=== PATIENT | female | born 1995 | race Caucasian/White ===

== ENCOUNTER → 2019-05-17 00:42 | Observation (INO) ==
[2019-05-16 22:13] LABS: Bilirubin,Urine Negative (Negative); Blood,Urine Negative (Negative); Clarity,Urine Clear (Clear); Color,Urine Yellow (Yellow); Glucose,Urine (UA) Normal (Normal); Ketones,Urine Negative (Negative); Leukocyte Esterase,Urine Negative (Negative); Nitrite,Urine Negative (Negative); PH,Urine 6.5 pH Units (5.0-8.0); Protein,Urine Negative (Neg-Trace); Urobilinogen,Urine Normal (Normal)
[2019-05-16 22:19] LABS: Amphetamine Screen,Urine Negative ng/mL (Cutoff=1000); Barbiturate Screen,Urine Negative ng/mL (Cutoff=200); Benzodiazepines Screen,Urine Negative ng/mL (Cutoff=200); Cannabinoid Screen,Urine Negative ng/mL (Cutoff = 50); Cocaine Screen,Urine Negative ng/mL (Cutoff= 300); Opiate Screen,Urine Negative ng/mL (Cutoff=300); Phencyclidine Screen,Urine Negative ng/mL (Cutoff=25)
[~2019-05-17 00:42] MED LIST: Acetaminophen 325 MG TABLET PO ONE
== END | disposition home or self-care (01) ==
LOC: 1NENULAB
PROVIDERS: ADMIT Registered Nurse; ATTEND Registered Nurse

== ENCOUNTER 2019-07-09 05:00 | Inpatient (IN) ==
[2019-07-09] MEDS ORDERED: Metoclopramide 10 MG/2 ML VIAL IVP PRN (05:22)
[2019-07-09] MEDS ORDERED: Naloxone 0.4 MG/ML INJ IVP PRN (05:22)
[2019-07-09] MEDS ORDERED: Lidocaine 1% 20 ML MDV INFILT PRN (05:22)
[2019-07-09] MEDS ORDERED: Famotidine 20 MG/2 ML VIAL IVP PRN (05:22)
[2019-07-09] MEDS ORDERED: Penicillin G Potassium 5,000,000 UNIT in 0.9 % Sodium Chloride Mini Bag 100 ML IVPB ONE (05:27)
[2019-07-09] MEDS ORDERED: miSOPROStoL 25 MCG TABLET PO ONE (06:00)
[2019-07-09] MEDS: Ringers Solution, Lactated 1,000 ML IVC SCH ×3 (06:08→22:40)
[2019-07-09 06:16] LABS: Basophils # 0.1 K/mcL (0.0-0.2); Basophils % 0.6 %; Eosinophils # 0.1 K/mcL (0.0-0.6); Eosinophils % 1.7 %; Hematocrit 34.6 % (35.3-44.9); Hemoglobin 11.4 g/dL (11.5-15.4); Immature Granulocytes % 0.2 % (0-4); Lymphocytes # 2.4 K/mcL (0.6-4.6); Lymphocytes % 29.5 %; Mean Corpuscular HGB Conc 32.9 g/dL (31.6-35.5); Mean Corpuscular Hemoglobin 29.4 pg (28.0-33.3); Mean Corpuscular Volume 89.2 fL (83.0-100.0); Mean Platelet Volume 9.8 fL (9.4-12.4); Monocytes # 0.6 K/mcL (0.0-1.3); Monocytes % 7.3 %; Platelet Count 359 K/mcL (140-400); Red Blood Count 3.88 M/mcL (3.82-4.97); Red Cell Distribution Width 14.1 % (11.5-14.5); Segmented Neutrophils % 60.7 %; White Blood Count 8.2 K/mcL (4.3-11.1)
[2019-07-09] MEDS ORDERED: EPHEDrine 50 MG/ML VIAL IVP PRN (07:34)
[2019-07-09 10:10] LABS: Amphetamine Screen,Urine Negative ng/mL (Cutoff=1000); Barbiturate Screen,Urine Negative ng/mL (Cutoff=200); Benzodiazepines Screen,Urine Negative ng/mL (Cutoff=200); Cannabinoid Screen,Urine Negative ng/mL (Cutoff = 50); Cocaine Screen,Urine Negative ng/mL (Cutoff= 300); Opiate Screen,Urine Negative ng/mL (Cutoff=300); Phencyclidine Screen,Urine Negative ng/mL (Cutoff=25)
[2019-07-09] MEDS ORDERED: Oxytocin 20 units/ LR 1000 mL 20 UNIT/1,000 ML BAG IVC SCH (10:45)
[2019-07-09] MEDS: *HR* FentaNYL (PF) 100 MCG/2 ML VIAL IVP PRN ×2 (12:28→15:00)
[2019-07-09] MEDS: Penicillin G Potassium 2,500,000 UNIT in 0.9 % Sodium Chloride 100 ML IVPB SCH ×3 (14:05→22:35)
[2019-07-09] MEDS: Epidural Premix (fent/bupiv) 110 ML EP SCH ×2 (15:51→22:38)
[2019-07-09] MEDS ORDERED: Ropivacaine/PF 0.2% 20 ML VIAL ONE ×2 (16:08→23:42)
[2019-07-09] MEDS ORDERED: 0.9 % Sodium Chloride 1,000 ML ONE (22:23)
[2019-07-09] MEDS ORDERED: *HR* Ropivacaine/PF 0.5% 20 ML VIAL ONE (23:42)
[2019-07-10] MEDS ORDERED: *HR* HYDROcodone/Acet 5/325 mg TABLET PO PRN (04:10)
[2019-07-10] MEDS ORDERED: Measles/Mumps/Rubella Vacc 0.5 ML VIAL SQ PRN (04:10)
[2019-07-10] MEDS ORDERED: Benzocaine/Menthol 56 GM AEROSOL SPRAY TP PRN (04:10)
[2019-07-10] MEDS: Acetaminophen 325 MG TABLET PO PRN ×3 (04:28→16:34)
[2019-07-10] MEDS: Oxytocin 20 units/ LR 1000 mL 20 UNIT/1,000 ML BAG IVC SCH ×2 (04:28→20:36)
[2019-07-10] MEDS: Prenatal Vit/FA 1 EACH TABLET PO SCH (08:49)
[2019-07-10] MEDS: FLUoxetine HCl 10 MG CAPSULE PO SCH (10:54)
[2019-07-10] MEDS: Ibuprofen 600 MG TABLET PO PRN (19:57)
[2019-07-10] MEDS: Penicillin G Potassium 2,500,000 UNIT in 0.9 % Sodium Chloride 100 ML IVPB SCH (20:37)
[2019-07-11] MEDS: Acetaminophen 325 MG TABLET PO PRN ×2 (01:51→07:58)
[2019-07-11] MEDS: Ibuprofen 600 MG TABLET PO PRN (05:00)
[2019-07-11] MEDS: FLUoxetine HCl 10 MG CAPSULE PO SCH (07:58)
[2019-07-11] MEDS: Prenatal Vit/FA 1 EACH TABLET PO SCH (07:58)
[2019-07-11 08:27] VITALS: BP 129/74
== END 2019-07-11 10:48 | disposition home or self-care (01) | DRG 560 ==
LOC: 1NENULAB 05:20 → 1NENUOBS 07-10 06:07
PROVIDERS: ADMIT Advanced Practice Midwife; ATTEND Advanced Practice Midwife

== ENCOUNTER 2021-09-09 16:48 | Inpatient (IN) ==
[~2021-09-09 16:48] MED LIST changes: +*HR* Nalbuphine 10 MG/ML AMPUL IV PRN; -Acetaminophen 325 MG TABLET PO ONE; +Azithromycin 500 MG in 0.9 % Sodium Chloride 250 ML IVPB PRN; +Famotidine 20 MG/2 ML VIAL IVP PRN; +Metoclopramide 10 MG/2 ML VIAL IVP PRN; +Naloxone 0.4 MG/ML INJ IVP PRN
[2021-09-09] MEDS ORDERED: Oxytocin 30 UNIT/503 ML BAG IVC SCH (17:00)
[2021-09-09] MEDS: Ringers Solution, Lactated 1,000 ML IVC SCH ×2 (17:21→20:37)
[2021-09-09] MEDS ORDERED: EPHEDrine 50 MG/ML VIAL IVP PRN (18:08)
[2021-09-09 18:12] LABS: Basophils % 0.4 %; Eosinophils # 0.1 K/mcL (0.0-0.6); Eosinophils % 0.8 %; Hematocrit 36.3 % (35.3-44.9); Hemoglobin 12.7 g/dL (11.5-15.4); Immature Granulocytes % 0.4 % (0-4); Lymphocytes % 20.7 %; Mean Corpuscular Hemoglobin 30.4 pg (28.0-33.3); Mean Corpuscular Volume 86.8 fL (83.0-100.0); Mean Platelet Volume 11.4 fL (9.4-12.4); Monocytes # 0.6 K/mcL (0.0-1.3); Monocytes % 6.6 %; Neutrophils # 6.9 K/mcL (1.6-8.9); Platelet Count 283 K/mcL (140-400); Red Blood Count 4.18 M/mcL (3.82-4.97); Red Cell Distribution Width 14.6 % (11.5-14.5); Segmented Neutrophils % 71.1 %; White Blood Count 9.7 K/mcL (4.3-11.1)
[2021-09-09 18:15] LABS: Amphetamine Screen,Urine Negative ng/mL (Cutoff=1000); Barbiturate Screen,Urine Negative ng/mL (Cutoff=200); Benzodiazepines Screen,Urine Negative ng/mL (Cutoff=200); Cannabinoid Screen,Urine Negative ng/mL (Cutoff = 50); Cocaine Screen,Urine Negative ng/mL (Cutoff= 300); Opiate Screen,Urine Negative ng/mL (Cutoff=300); Phencyclidine Screen,Urine Negative ng/mL (Cutoff=25)
[2021-09-09] MEDS ORDERED: Epidural Premix (fent/bupiv) 110 ML EP SCH (18:15)
[2021-09-09 18:56] LABS: Creatinine,Urine 63 mg/dL; Protein/Creatinine Ratio,Urine 0.25 mg/mg (0.00-0.20)
[2021-09-09 18:57] LABS: Alanine Aminotransferase 12 Units/L (7-52); Aspartate Amino Transferase 22 Units/L (13-39); BUN/Creatinine Ratio 19 (6-26); Blood Urea Nitrogen 11 mg/dL (6-20); Lactate Dehydrogenase 189 Units/L (140-271); Uric Acid 4.6 mg/dL (2.3-7.6); eGFR For African Americans > 60 (> 60); eGFR For Non-African Americans > 60 (> 60)
[2021-09-09 18:58] LABS: Influenza A PCR Negative (Negative); Influenza B PCR Negative (Negative); Resp. Syncytial Virus PCR Negative (Negative)
[2021-09-09 18:59] LABS: SARS-CoV-2 by PCR (In House) Negative (Negative)
[2021-09-09] MEDS: Ondansetron 4 MG/2 ML VIAL IVP PRN (20:37)
[2021-09-09] MEDS ORDERED: Lidocaine -MPF 2% 5 ML VIAL ONE (20:56)
[2021-09-09] MEDS ORDERED: *HR* Succinylcholine 200 MG/10 ML VIAL IVP ONE (20:57)
[2021-09-09] MEDS ORDERED: *HR* Propofol 200 MG/20 ML VIAL IVP ONE (20:57)
[2021-09-10] MEDS: Ondansetron 4 MG/2 ML VIAL IVP PRN (00:55)
[2021-09-10] MEDS ORDERED: Oxytocin 30 UNIT/503 ML BAG IVC SCH (02:01)
[2021-09-10] MEDS ORDERED: Lanolin 7 G OINT...G. TP PRN (02:01)
[2021-09-10] MEDS ORDERED: Benzocaine/Menthol 56 GM AEROSOL SPRAY TP PRN (02:01)
[2021-09-10] MEDS ORDERED: Ondansetron ODT 4 MG TAB.RAPDIS SL PRN (02:01)
[2021-09-10] MEDS: Acetaminophen 325 MG TABLET PO SCH ×4 (02:14→20:07)
[2021-09-10] MEDS: Ibuprofen 600 MG TABLET PO SCH ×4 (05:16→23:10)
[2021-09-10 05:27] LABS: Basophils % 0.3 %; Eosinophils # 0.1 K/mcL (0.0-0.6); Eosinophils % 0.4 %; Hematocrit 33.2 % (35.3-44.9); Hemoglobin 11.6 g/dL (11.5-15.4); Immature Granulocytes % 0.4 % (0-4); Lymphocytes # 1.7 K/mcL (0.6-4.6); Lymphocytes % 12.8 %; Mean Corpuscular HGB Conc 34.9 g/dL (31.6-35.5); Mean Corpuscular Hemoglobin 30.4 pg (28.0-33.3); Mean Corpuscular Volume 87.1 fL (83.0-100.0); Mean Platelet Volume 11.2 fL (9.4-12.4); Monocytes # 0.8 K/mcL (0.0-1.3); Monocytes % 5.8 %; Neutrophils # 10.9 K/mcL (1.6-8.9); Platelet Count 222 K/mcL (140-400); Red Blood Count 3.81 M/mcL (3.82-4.97); Red Cell Distribution Width 14.6 % (11.5-14.5); Segmented Neutrophils % 80.3 %; White Blood Count 13.6 K/mcL (4.3-11.1)
[2021-09-10] MEDS: Prenatal Vit/FA 1 EACH TABLET PO SCH (08:19)
[2021-09-11] MEDS: Acetaminophen 325 MG TABLET PO SCH ×4 (02:49→19:39)
[2021-09-11] MEDS: Ibuprofen 600 MG TABLET PO SCH ×3 (05:09→18:12)
[2021-09-11] MEDS: Prenatal Vit/FA 1 EACH TABLET PO SCH (07:58)
[2021-09-12] MEDS: Ibuprofen 600 MG TABLET PO SCH ×2 (02:55→09:18)
[2021-09-12] MEDS: Acetaminophen 325 MG TABLET PO SCH ×2 (02:55→09:18)
[2021-09-12 07:18] VITALS: BP 131/93; PULSE 78; TEMP 98.5; O2SAT 96
[2021-09-12] MEDS: Prenatal Vit/FA 1 EACH TABLET PO SCH (07:58)
== END 2021-09-12 10:53 | disposition home or self-care (01) | DRG 560 ==
LOC: 1NENULAB → 1NENUOBS 09-10 03:36
PROVIDERS: ADMIT Advanced Practice Midwife; ATTEND Advanced Practice Midwife